=== PATIENT | female | born 1960 | race Caucasian/White ===

== ENCOUNTER 2020-01-21 07:46 | Day surgery (SDC) | payer BC ==
[2020-01-14 15:43] LABS: BASOPHILS % (AUTO) 0.5 % (0-1); EOSINOPHILS # (AUTO) 0.4 X10'3 (0-0.9); EOSINOPHILS % (AUTO) 4.1 % (0-6); LYMPHOCYTES # (AUTO) 3.1 X10'3 (1.1-4.8); MEAN CORPUSCULAR HEMOGLOBIN 30.4 PG (27.0-31.0); MEAN CORPUSCULAR HGB CONC 33.6 g/dL (33.0-36.5); MEAN CORPUSCULAR VOLUME 90.4 FL (78-98); MEAN PLATELET VOLUME 9.3 FL (7.4-10.4); MONOCYTES # (AUTO) 0.8 X10'3 (0-0.9); MONOCYTES % (AUTO) 8.8 % (2-12); NEUTROPHILS # (AUTO) 4.4 X10'3 (1.8-7.7); NEUTROPHILS % (AUTO) 50.6 % (42-75); PRE OP HEMATOCRIT 45.1 % (35.0-45.0); PRE OP HEMOGLOBIN 15.2 g/dL (12.0-16.0); PRE OP PLATELET COUNT 251 X10'3 (140-440); RED BLOOD COUNT 4.99 X10'6 (4.20-5.60); RED CELL DISTRIBUTION WIDTH 12.8 % (11.5-14.5)
[2020-01-14 16:01] LABS: ALBUMIN 3.6 G/DL (3.4-5.0); ALBUMIN/GLOBULIN RATIO 0.9 (1.1-1.5); ALKALINE PHOSPHATASE 109 IU/L (46-116); BLOOD UREA NITROGEN 12 MG/DL (7-18); BUN/CREATININE RATIO 11.9 (6.6-38.0); CALCIUM 8.7 MG/DL (8.5-10.1); CHLORIDE 107 MMOL/L (99-107); CREATININE 1.01 MG/DL (0.40-0.90); PRE OP ALT 38 U/L (30-65); PRE OP ANION GAP 7 (8-16); PRE OP AST 10 U/L (10-37); PRE OP BILIRUB, TOTAL 0.3 MG/DL (0.0-1.0); PRE OP GLUCOSE 119 MG/DL (70-104); PRE OP POTASSIUM 3.7 MMOL/L (3.4-5.1); PRE OP SODIUM 141 MMOL/L (135-145); TOTAL CARBON DIOXIDE 27.4 MMOL/L (24-32); TOTAL PROTEIN 7.4 G/DL (6.4-8.2); eGFR 56 ML/MIN
[2020-01-14 16:17] LABS: CLARITY,URINE CLOUDY (Clear); COLOR,URINE YELLOW (Yellow); GLUCOSE, URINE NEGATIVE (Neg); KETONES,URINE NEGATIVE (Neg); LEUKOCYTE ESTERASE ,URINE SMALL (Neg); NITRITES, URINE NEGATIVE (Neg); OCCULT BLOOD,URINE NEGATIVE (Neg); PROTEIN,URINE NEGATIVE (Neg); UROBILINOGEN,URINE 0.2 E.U/dL (0.2-1.0)
[2020-01-14 16:19] LABS: UA COLLECTION TYPE CLN CATCH MIDSTREAM
[2020-01-14 16:30] LABS: WBC,URINE 0-4 /HPF (0-4)
[2020-01-14 16:31] LABS: BACTERIA,URINE 1+ /HPF (Neg); MUCUS STRANDS FEW /LPF (Neg); RBC,URINE NONE SEEN /HPF (0-2); RENAL CELLS, URINE FEW /HPF; SQUAMOUS EPITHELIAL CELL,UR MANY /LPF (FEW); TRANSITIONAL EPI CELLS,URINE FEW /HPF
[~2020-01-21] VITALS: Ht 160 cm; Wt 127.4 kg
[2020-01-21] VITALS (19 sets, daily range): BP systolic 129–157; BP diastolic 63–98
[~2020-01-21 07:46] MED LIST: LISI40TA4 PO; OMEP-50 PO; PRAV10TA39 PO; ceFOXitin sod/dextrose 2g/50ml 50 ML IV ONE; famotidine 20mg tablet PO ONE; ringers solution, lacted 1,000 ML IV SCH
[2020-01-21] MEDS ORDERED: ringers solution, lacted 1,000 ML IV SCH (07:54)
[2020-01-21] MEDS ORDERED: morphine 4 MG/ML inj SYRINge IV PRN (07:55)
[2020-01-21] MEDS ORDERED: proCHLORperazine 10 MG/2 ml inj IV PRN (07:55)
[2020-01-21] MEDS ORDERED: meperidine/PF 25mg/ml syringe IV PRN ×3 (07:55)
[2020-01-21] MEDS ORDERED: morphine 2 MG/ML inj. syringe IV PRN (07:55)
[2020-01-21] MEDS ORDERED: ondansetron/PF 4mg/2ml inj IV PRN ×2 (07:55→13:00)
[2020-01-21] MEDS ORDERED: epiNEPHrine 1 mg/ml inj SQ ONE (08:20)
[2020-01-21] MEDS ORDERED: clindamycin phosphate 40gm vag cream ONE (08:25)
[2020-01-21] MEDS ORDERED: epiNEPHrine 1 mg/ml inj ONE (08:25)
[2020-01-21] MEDS ORDERED: BUPIVAcaine/PF 2.5 mg/ml (0.25%) 30ml vial ONE (08:25)
[2020-01-21] MEDS ORDERED: vasoPRESSIN 20 units/ml inj. ONE ×2 (08:26→09:06)
[2020-01-21] MEDS ORDERED: neomy sulf/polymyxin B sulf. GU irrigation 1ml amp IR ONE (08:26)
[2020-01-21] MEDS ORDERED: CETI-90 PO (08:39)
[2020-01-21] MEDS ORDERED: ACET-2119 PO (08:39)
[2020-01-21] MEDS ORDERED: ACET-1008 PO (08:39)
[2020-01-21] MEDS ORDERED: MIDAZolam 5mg/5ml vial ONE (09:10)
[2020-01-21] MEDS ORDERED: fentaNYL /PF 50mcg/ml 5ml ampule ONE (09:11)
[2020-01-21] MEDS ORDERED: LIDOcaine 2% (20mg/ml) 5ml vial ONE (09:11)
[2020-01-21] MEDS ORDERED: propofol inj 20 ML IV ONE ×2 (09:11→10:34)
[2020-01-21] MEDS ORDERED: sevoflurane 250ml liquid IH ONE (09:15)
[2020-01-21] MEDS ORDERED: esmolol 10mg/ml inj IV ONE (09:15)
[2020-01-21] MEDS ORDERED: ondansetron/PF 4mg/2ml inj ONE (10:21)
[2020-01-21] MEDS ORDERED: dexamethasone sod phosphate 4mg/ml inj. ONE (10:21)
[2020-01-21] MEDS ORDERED: hydrocortisone sod succ/PF 100mg/2ml inj. ONE (10:21)
[2020-01-21] MEDS ORDERED: glycopyrrolate 0.2mg/ml inj ONE (10:34)
[2020-01-21] MEDS ORDERED: succinylcholine 20mg/ml inj IV ONE (10:34)
[2020-01-21] MEDS ORDERED: rocuronium 10mg/ml inj IV ONE (10:34)
[2020-01-21] MEDS ORDERED: acetaminophen 1,000mg/100ml IV 100 ML IV ONE (11:20)
[2020-01-21] MEDS ORDERED: meperidine/PF 25mg/ml syringe ONE ×2 (11:36→12:41)
[2020-01-21] MEDS ORDERED: diphenhydrAMINE 50 mg/ml inj IV PRN (13:00)
[2020-01-21] MEDS ORDERED: LORazepam 2 mg/ml vial IV PRN (13:00)
[2020-01-21] MEDS ORDERED: ketorolac trometh. 30mg/ml inj. IV PRN (13:00)
[2020-01-21] MEDS ORDERED: temazepam 15mg capsule PO PRN (13:00)
[2020-01-21] MEDS ORDERED: LORazepam 1 MG tablet PO PRN (13:00)
[2020-01-21] MEDS ORDERED: albuterol 2.5 MG/3 ML nebule NEB PRN (13:00)
[2020-01-21] MEDS ORDERED: normal saline 500ml IV soln 500 ML IV PRN (13:00)
[2020-01-21] MEDS: simethicone 80mg chew tab PO SCH ×2 (13:00→19:05)
[2020-01-21] MEDS ORDERED: magnesium hydroxide 30ml (MOM) UD suspension PO PRN (13:00)
[2020-01-21] MEDS ORDERED: HYDROcodone/acetaminophen 10/325mg tab PO PRN ×2 (13:00)
[2020-01-21] MEDS ORDERED: metoclopramide 5 mg/ml inj IV PRN (13:00)
--- NOTE | 2020-01-21 13:08 | NUR ---
Received from OR via BED, accompanied by Anesthesiologist DR Henry report given by Anesthesiolgist. , DENIES PAIN, V/S WNL, NEUROVASCULAR CHECKS INTACT, G PIV UE, SCD ON, LMA IN PLACE. WILL CONTINUE TO MONITOR
--- NOTE | 2020-01-21 13:10 | NUR ---
LMA DC'D PATIENT TOLERATED WELL.
--- NOTE | 2020-01-21 13:30 | NUR ---
Patient in room [facility]. I have received report from SUNIL LAIRD FROM [facility] and had the opportunity to ask questions and assume patient care.
--- NOTE | 2020-01-21 13:59 | NUR ---
POST -OP BS [id number]
--- NOTE | 2020-01-21 14:32 | NUR ---
PATIENT TAKEN TO WITH ALL BELONGINGS AND HOOKED UP TO MONITORS IN ROOM AND REPORT GIVEN TO RN WHO HAS TAKEN OVER PATIENT CARE.
--- NOTE | 2020-01-21 18:15 | NUR ---
Received report from primary care nurse Paulette BARBER. Assumed patient care Patient is awake on 2L NC. In no apparent distress. Call light and items of frequent use within reach. Will continue to monitor for changes.
[2020-01-21] MEDS: docusate sod 100mg capsule PO SCH (19:05)
[2020-01-21] MEDS: ceFAZolin 1GM/D5W- ADD-VANTAGE 50 ML IV SCH (19:09)
[2020-01-21] MEDS: ringers solution, lacted 1,000 ML IV SCH ×2 (19:12→21:00)
--- NOTE | 2020-01-21 19:15 | NUR ---
Problems reprioritized. Patient report given, questions answered & plan of care reviewed with SUNIL VELEZ.
[2020-01-22] VITALS: BP 128/67
[2020-01-22] MEDS: ceFAZolin 1GM/D5W- ADD-VANTAGE 50 ML IV SCH ×2 (01:26→08:58)
[2020-01-22 05:01] LABS: BASOPHILS % (AUTO) 0.2 % (0-1); EOSINOPHILS % (AUTO) 0 % (0-6); HEMATOCRIT 44.3 % (35.0-45.0); HEMOGLOBIN 14.7 g/dl (12.0-16.0); LYMPHOCYTES # (AUTO) 1.3 X10'3 (1.1-4.8); LYMPHOCYTES % (AUTO) 6.5 % (21-51); MEAN CORPUSCULAR HEMOGLOBIN 30.2 PG (27.0-31.0); MEAN CORPUSCULAR HGB CONC 33.2 g/dL (33.0-36.5); MEAN CORPUSCULAR VOLUME 90.9 FL (78-98); MEAN PLATELET VOLUME 9.2 FL (7.4-10.4); MONOCYTES # (AUTO) 1.3 X10'3 (0-0.9); MONOCYTES % (AUTO) 6.3 % (2-12); NEUTROPHILS # (AUTO) 17.9 X10'3 (1.8-7.7); PLATELET COUNT 228 X10'3 (140-440); RED BLOOD COUNT 4.87 X10'6 (4.20-5.60); RED CELL DISTRIBUTION WIDTH 12.9 % (11.5-14.5); WHITE BLOOD COUNT 20.6 X10'3 (4.5-11.0)
[2020-01-22 05:14] LABS: ALBUMIN 3.1 G/DL (3.4-5.0); ANION GAP 7 (8-16); BLOOD UREA NITROGEN 11 MG/DL (7-18); BUN/CREATININE RATIO 11.3 (6.6-38.0); CALCIUM 8.3 MG/DL (8.5-10.1); CHLORIDE 106 MMOL/L (99-107); CREATININE 0.97 MG/DL (0.40-0.90); GLUCOSE 130 MG/DL (70-104); POTASSIUM 4.2 MMOL/L (3.5-5.1); SODIUM 139 MMOL/L (135-145); eGFR 58 ML/MIN
[2020-01-22] MEDS: ringers solution, lacted 1,000 ML IV SCH ×2 (05:51→13:00)
[2020-01-22 06:30] VITALS: BP 163/78
--- NOTE | 2020-01-22 06:30 | NUR ---
Patient in room [facility]. I have received report from SUNIL Moreno and had the opportunity to ask questions and assume patient care.
--- NOTE | 2020-01-22 06:40 | NUR ---
Reported off to Jasmyne RN. Patient is awake and alert on room air. In no apparent distress. Call light and items of frequent use within reach.
[2020-01-22] MEDS ORDERED: enoxaparin 40mg/0.4ml syringe SQ SCH (08:00)
[2020-01-22] MEDS: simethicone 80mg chew tab PO SCH ×2 (08:58→12:42)
[2020-01-22] MEDS: docusate sod 100mg capsule PO SCH (08:58)
[2020-01-22 11:00] VITALS: BP 136/56
--- NOTE | 2020-01-22 19:15 | NUR ---
DC inst provided to pt. IV DC'd, tip intact. All belongings sent w/pt. WC to front lobby.
== END 2020-01-22 19:15 | disposition home or self-care (01) ==
LOC: PAS 07:46 → SUR 3N 13:00 → PAS 01-22 19:15
PROVIDERS: ATTEND Obstetrics & Gynecology Obstetrics
DX: N85.01 Benign endometrial hyperplasia (principal); D25.2 Subserosal leiomyoma of uterus; G47.30 Sleep apnea, unspecified; K21.9 Gastro-esophageal reflux disease without esophagitis; I10 Essential (primary) hypertension; E66.01 Morbid (severe) obesity due to excess calories; Z68.42 Body mass index [BMI] 45.0-49.9, adult; Z91.013 Allergy to seafood; Z88.8 Allergy status to other drugs, medicaments and biological substances; Z98.890 Other specified postprocedural states; Z90.710 Acquired absence of both cervix and uterus; Z90.49 Acquired absence of other specified parts of digestive tract; Z79.899 Other long term (current) drug therapy
CPT/HCPCS: 36415; 58552; 80048; 80053; 81001; 82948; 85025; 86885; 86900; 86901; 87635; 94760; J0131; J0171; J0330; J0690; J0694; J1100; J1720; J2001; J2175; J2250; J2270; J2405; J2704; J3010; J3490; J7120; A4314; A4618; A7000; G0378; J1650